=== PATIENT | female | born 1935 | race Caucasian/White ===

== ENCOUNTER 2017-06-11 12:08 | Inpatient (IN) | payer OTHER ==
[~2017-06-11] VITALS: Ht 167.6 cm; Wt 108.4 kg
[~2017-06-11 12:08] MED LIST: AMBIEN 5 MG TABL5 M1 PO; AMITRIPTYLINE H10 M1 PO; AMLODIPINE BESY10 MG PO; ATENOLOL-CHLOR1 EACH PO; BENADRYL25 MG PO; CARVEDILOL12.5 MG PO; CATAPRES0.2 M1 PO; CIPRO500 MG PO; CIPROFLOXACIN250 M2 PO; CLONIDINE0.1 PO; COLACE100 MG PO; COLCHICINE0.6 MG PO; COREG25 MG PO; DILAUDID 2 MG TA2 MG PO; DOCUSATE SODIU100 MG PO; DULCOLAX5 MG PO; DUONEB 2.5-0.5 M3 ML INH; EPOGEN10000 UNIT HEMODIALYS; EPOGEN20000 UNI2 SUBQ; EYE IRRIGATING118 ML OPHTHALMIC; FAMVIR500 MG PO; FENTANYL PA50 MCG/HR TRANSDERM; GABAPENTIN 100100 MG PO; GENTAMICIN100 MG/10 IV; HEPARIN 1,100 UNIT/1 HEMODIALYS; HYDRALAZINE 2525 M1 GT; HYDRALAZINE 2525 M1 PO; HYDRALAZINE 2525 MG PO; HYDROCODON-ACE1 EAC7 PO; HYDROCODON-ACE1 EAC8 PO; HYDROCODONE-AP1 EAC6 PO; HYDROCODONE-APA1 TA1 PO; HYTRIN 5 M5 MG/1 CAP PO; IRON325 PO; KEFLEX500 MG PO; KLOR-CON M1010 MEQ PO; LASIX 40 MG TAB40 M2 PO; LEVAQUIN 250 M250 MG PO; LEVAQUIN 500 M500 M2 PO; LIDODERM 5%1 PATC1 TOP; LIDODERM 5%1 PATC1 TRANSDERM; LISINOPRIL10 MG PO; LORTAB 5-500 T1 EAC1 PO; LYRICA 75 MG CA75 MG PO; MAG-AL PLUS SUS30 ML PO; MELATONIN3 MG PO; MELOXICAM7.5 MG PO; MILK OF MA2400 MG/10 PO; MIRALAX17 GM PO; MIRALAX255 GM PO; MOVANA300 MG; NEURONTIN 300300 M1 PO; NEURONTIN300 MG PO; NORCO 10-325 T1 EACH PO; NORCO 5-325 TA1 EACH PO; NORTRIPTYLINE H10 M1 PO; NORTRIPTYLINE H10 M2 PO; NORVASC10 MG PO; NYSTATIN15 GM TOP; ONDANSETRON HCL4 M2 PO; OXYCODONE HCL 55 MG PO; PEPCID20 MG PO; PHENERGAN 25 MG25 M1 PO; PHOSLO667 M1 PO; PREDNISONE 20 M20 MG PO; PROTONIX40 M2 PO; RANITIDINE HCL300 M1 PO; RANITIDINE HCL300 MG PO; SENNA PO; SIMETHICONE1 ML MC; TRAMADOL 50 MG50 MG PO; TRANSDERM-SCO1 PATC1 TRANSDERM; TRIAMTERENE-HC1 EAC2 PO; TRIPLE ANTIBIOT28 G2 TP; TYLENOL325 MG PO; VANCOMYCIN HCL1 GM IV; VANCOMYCIN500 MG/VIA IV; VITAMIN B-12250 MCG; VITAMIN D 5050000 I1 PO; VITAMIN D3400 UNIT PO; XANAX 0.25 MG0.25 MG PO; XANAX 0.5 MG0.5 MG PO; ZANTAC 150MG T150 M1
[2017-06-11 12:31] VITALS: BP 141/61
[2017-06-11 12:51] LABS: ABSOLUTE EOSINOPHILS 0.1 thou/uL (0.0-0.7); ABSOLUTE LYMPHOCYTES 0.6 thou/uL (0.8-5.3); ABSOLUTE MONOCYTES 0.3 thou/uL (0.0-1.2); ABSOLUTE NEUTROPHILS 3.7 thou/uL (1.6-8.1); EOSINOPHILS 3.1 %; HEMATOCRIT 31.4 % (37.0-47.0); HEMOGLOBIN 10.5 gm/dL (12.0-15.0); LYMPHOCYTES 12.8 %; MCH 33.1 pg (26.0-34.0); MCHC 33.4 g/dL (28.0-37.0); MONOCYTES 6.5 %; NUCLEATED RBCS 0 /100WBC; PLATELET COUNT* 115 thou/uL (150-400); POLYS 76.6 %; RBC 3.17 mil/uL (4.20-5.00); RDW-CV 17.1 % (10.5-14.5); WBC 4.8 thou/uL (4.0-11.0)
[2017-06-11 12:58] LABS: ANION GAP 10 mmol/L (7-16); BUN 45 mg/dL (7-18); CALCIUM 7.4 mg/dL (8.5-10.1); CHLORIDE 103 mmol/L (98-107); CO2 26 mmol/L (21-32); CREATININE 5.3 mg/dL (0.6-1.3); GLUCOSE 141 mg/dL (70-99); POTASSIUM 4.6 mmol/L (3.5-5.1); SODIUM 139 mmol/L (136-145)
[2017-06-11 13:06] LABS: ALBUMIN 2.7 g/dL (3.4-5.0); ALKALINE PHOSPHATASE 109 U/L (46-116); LIPASE 46 U/L (73-393); SGOT 13 U/L (15-37); SGPT 14 U/L (30-65); TOTAL BILIRUBIN 0.4 mg/dL (<0.1-1.0); TOTAL PROTEIN 6.3 g/dL (6.4-8.2); TROPONIN-I LEVEL <0.06 ng/mL (<0.06)
[2017-06-11 16:30] VITALS: BP 136/66
[2017-06-11 16:55] VITALS: BP 186/90
[2017-06-11 21:05] VITALS: BP 161/71
[2017-06-11 23:00] VITALS: BP 124/70
[2017-06-12 04:00] VITALS: BP 152/72
[2017-06-12 05:00] LABS: ABSOLUTE EOSINOPHILS 0.2 thou/uL (0.0-0.7); ABSOLUTE LYMPHOCYTES 0.7 thou/uL (0.8-5.3); ABSOLUTE MONOCYTES 0.4 thou/uL (0.0-1.2); ABSOLUTE NEUTROPHILS 3.6 thou/uL (1.6-8.1); BASOPHILS 0.9 %; EOSINOPHILS 3.5 %; HEMATOCRIT 31.7 % (37.0-47.0); HEMOGLOBIN 10.6 gm/dL (12.0-15.0); LYMPHOCYTES 14.9 %; MCH 33.4 pg (26.0-34.0); MCHC 33.5 g/dL (28.0-37.0); MCV 99.9 fL (80.0-100.0); MONOCYTES 8.2 %; MPV 8.5 fl. (7.2-11.1); NUCLEATED RBCS 0 /100WBC; PLATELET COUNT* 113 thou/uL (150-400); POLYS 72.5 %; RBC 3.17 mil/uL (4.20-5.00); RDW-CV 17.1 % (10.5-14.5)
[2017-06-12 05:13] LABS: CALCIUM 7.7 mg/dL (8.5-10.1); CREATININE 5.3 mg/dL (0.6-1.3); POTASSIUM 5.1 mmol/L (3.5-5.1)
[2017-06-12 09:00] VITALS: BP 162/69
--- NOTE | 2017-06-12 09:34 | CON ---
[address] [address] CONSULTATION Name: MARISEL SHERMAN Room: [address] IN .R.#: [id number] Admission: 06/11/17 Attend Phys: Vinh Leslie MD Discharge: Date of : 34 Report #: [id number] THIS REPORT FOR: //name// CC: Vinh Disla Nida DATE OF SERVICE: 06/11/2017 NEPHROLOGY CONSULTATION CONSULTING PHYSICIAN: Vinh Leslie MD REASON FOR CONSULTATION: End-stage kidney disease. HISTORY OF PRESENT ILLNESS: The patient is an 81-year-old female with history of end-stage kidney disease, on hemodialysis Sunday, Sunday and Sunday was at her dialysis center this morning, but was told to come here as they noticed some bruising and some confusion reportedly. She comes in to the Emergency Department and is going to be admitted for weakness. She is awake and alert, does not seem confused. Does not have any shortness of breath. No nausea or vomiting. Really, no other complaints at this time. REVIEW OF SYSTEMS: Constitutional, psych, heme, eyes, ENT, respiratory, cardiac, GI, , endocrine, all negative except as documented above. PAST MEDICAL HISTORY: History of end-stage kidney disease, on dialysis Sunday, Sunday and Sunday; hypertension, reflux, history of partial gastrectomy and history of CHF. SOCIAL HISTORY: No tobacco. FAMILY HISTORY: Not pertinent in this 81-year-old female. CURRENT MEDICATIONS: Reviewed. PHYSICAL EXAMINATION: VITAL SIGNS: Blood pressure 141/61, pulse 78, respirations 16, temperature 36.4. GENERAL: In no acute distress. EYES: Extraocular movements intact. EARS: Externally normal. CARDIOVASCULAR: Regular rate. LUNGS: No crackles. ABDOMEN: Soft. LYMPHATICS: Mild swelling in the lower extremities. PSYCHIATRIC: Awake, [place] [address] CONSULTATION Name: MARISEL SHERMAN Room: [address]#: [id number] Admission: 06/11/17 Attend Phys: Vinh Leslie MD Discharge: Date of : 34 Report #: [id number] LABORATORY DATA: White cell count 4.8, hemoglobin 10.5, platelets 115. Sodium 139, potassium 4.6, chloride 103, bicarbonate 26, BUN 45, creatinine 5.3, glucose 141, calcium 7.4. ASSESSMENT AND PLAN: 1. End-stage kidney disease, hemodialysis Sunday, Sunday and Sunday, hemodynamically and from electrolyte standpoint, she is currently stable. She missed her dialysis today. No urgent indications for dialysis tonight. We will plan to do the dialysis in the morning and then resume her Sunday, Sunday and Sunday schedule. We will follow for dialysis needs. 2. Anemia of chronic disease. Continue outpatient ANA PAULA regimen. Thank you for requesting my opinion in the care and management of this patient. <ELECTRONICALLY SIGNED> By: Yusuf Nathan MD 06/12/17 0934 1553 [id number] Nathan MD /nt
[2017-06-12 15:38] VITALS: BP 157/75
[2017-06-12 19:46] VITALS: BP 162/81
[2017-06-12 23:26] VITALS: BP 118/71
[2017-06-13 03:41] VITALS: BP 147/78
[2017-06-13 07:39] VITALS: BP 137/58
--- NOTE | 2017-06-13 09:11 | EKG ---
[place] [address] ELECTROCARDIOGRAM REPORT Name: WHITMARISEL A Room: [address] ADM IN [facility].#: [id number] Admission: 06/11/17 Attend Phys: Vinh Leslie MD Discharge: Date of : 34 Report #: [id number] THIS REPORT FOR: //name// [facility] Test Date: 2017-06-12 Test Time: 08:55:58 Pat Name: MARISEL SHERMAN Department: Room: [address] Gender: F Groundsman: KF : 1935 Requested By: Vinh Leslie Order Number: [id number] Justus MD: Ritchie Benton Measurements Intervals [place] Rate: 77 P: 36 MT: 193 QRS: 38 QRSD: 81 T: 66 QT: 383 QTc: 434 Interpretive Statements Sinus rhythm Atrial premature complex Compared to ECG 04/24/2016 17:34:38 No significant changes Electronically Signed On 06-13-2017 9:11:36 CDT by Ritchie Benton [email or web address] <ELECTRONICALLY SIGNED> By: Ritchie Benton MD, [facility] 06/13/17910 4 4 Ritchie Benton MD, [facility] /EPI
[2017-06-13] MEDS ORDERED: B12INJ IM (13:12)
[2017-06-13] MEDS ORDERED: FOLIC ACID1 MG PO (13:15)
[2017-06-13] MEDS ORDERED: LIDODERM1 EACH TRANSDERM (13:30)
[2017-06-13] MEDS ORDERED: ERGOCALCIF50000 UNIT PO (13:32)
[2017-06-13 13:36] VITALS: BP 137/58
--- NOTE | 2017-06-18 12:50 | CON ---
[address] [address] CONSULTATION Name: MARISEL SHERMAN Room: [address] IN .R.#: [id number] Admission: 06/11/17 Attend Phys: Vinh Leslie MD Discharge: 06/13/17 Date of : 34 Report #: [id number] THIS REPORT FOR: //name// CC: Vinh Alva MD INDICATION: Chest pain. HISTORY OF PRESENT ILLNESS: The patient is an 81-year-old white female who was admitted to the hospital after falling at home. She apparently was assisted back to an upright position by EMS and at that time refused hospital admission. She was later brought to the hospital by her family for confusion. Since being in the hospital, she has complained of chest discomfort, right-sided in location and reproducible. She reports having chest pain for the last 4 years since and dialysis shunt was placed. She states this is constant and ongoing. It is worse with deep inspiration and palpitation. She had some relief by bracing her chest. She denies any associated diaphoresis with the chest discomfort. There is no nausea. She is without other cardiac complaint at this time. Past cardiac history includes an echocardiogram obtained in 2015, which showed an EF of 55%-60% and [id number] mitral insufficiency. She has mild LVH. Stress testing at that time showed normal EF with no evidence of ischemia or infarct. PAST MEDICAL HISTORY: 1. Hypertension. 2. Hypertensive heart disease. 3. Chronic diastolic heart failure. 4. End-stage renal disease, on dialysis. 5. Mild pulmonary hypertension. 6. GERD. 7. Pancreatitis and previous rib fractures. PAST SURGICAL HISTORY: 1. Cholecystectomy. 2. Hysterectomy. 3. Knee surgery. 4. Previous knee arthroscopy. 5. Partial gastrectomy. 6. Hemorrhoidectomy. 7. Tonsillectomy. HOME MEDICATIONS: Gabapentin 100 mg p.o. t.i.d.; Lidoderm patch daily; oxycodone immediate release 5 mg q. 4 hours p.r.n.; Keflex 500 mg b.i.d.; triple antibiotic ointment topically b.i.d.; Zofran 4 mg p.o. as directed; Zantac 300 mg at bedtime p.r.n.; vitamin D 400 units daily; vitamin D 50,000 units weekly; [place] [address] CONSULTATION Name: MARISEL SHERMAN Room: [address]#: [id number] Admission: 06/11/17 Attend Phys: Vinh Leslie MD Discharge: 06/13/17 Date of : 34 Report #: [id number] Epogen 50,000 mg as directed; nortriptyline 20 mg at bedtime; alprazolam 0.5 mg t.i.d.; MiraLax 17 grams p.r.n.; Elavil 10 mg at bedtime; Colace 100 mg daily and colchicine 0.6 mg 1/2 tablet daily. ALLERGIES: TAPE, ASPIRIN, CODEINE, FLU VACCINE and PENICILLIN. REVIEW OF SYSTEMS: Positive for generalized weakness, 7-pound weight gain, constant chest discomfort, constant shortness of breath, depression, anxiety, psoriasis, reading glasses and decreased hearing. Otherwise, 14-point review of systems was unremarkable. PHYSICAL EXAMINATION: VITAL SIGNS: Stable. Blood pressure 157/75 and pulse 81 and regular. GENERAL: This is a pleasant lady who is in no distress. Mood and affect appropriate. HEENT: Extraocular muscles intact. NECK: Shows no jugular venous distention. CHEST: Reveals clear lung maher. I do not appreciate wheezes or rales. CARDIAC: Reveals a regular rhythm with normal S1 and S2. I do not appreciate gallop or murmur. ABDOMEN: Reveals normal bowel sounds. EXTREMITIES: Shows no edema. Peripheral pulses palpable. IMPRESSION AND RECOMMENDATIONS: 1. Atypical noncardiac chest pain that sounds musculoskeletal in nature. Continue to treat with pain relief medications. No further cardiac workup at this time. Troponins are unremarkable. 2. Chronic diastolic heart failure, appears well compensated at present. We would follow clinically. 3. End-stage renal disease, on dialysis. 4. Hypertension, presently well controlled on current regimen. 5. Hypertensive heart disease, presently stable. At this point in time, the patient appears stable from a cardiac standpoint. We would follow clinically. <ELECTRONICALLY SIGNED> By: Ritchie Benton MD, FACC 06/18/17 1250 1603 2053Micelroy Benton MD, FACC /nt
== END 2017-06-13 14:20 | DRG 91 ==
LOC: M.ERS 12:08 → M.TBA-ER 14:28 → M.2W 14:28
PROVIDERS: Physician Assistant; ADMIT Internal Medicine
PROC: 5A1D70Z Performance of Urinary Filtration, Intermittent, Less than 6 Hours Per Day (ICD-10-PCS; principal; 2017-06-12)
DX: G92 Toxic encephalopathy (principal); N18.6 End stage renal disease; I13.2 Hypertensive heart and chronic kidney disease with heart failure and with stage 5 chronic kidney disease, or end stage renal disease; I50.32 Chronic diastolic (congestive) heart failure; K21.9 Gastro-esophageal reflux disease without esophagitis; R07.89 Other chest pain; G89.29 Other chronic pain; E87.5 Hyperkalemia; G31.84 Mild cognitive impairment of uncertain or unknown etiology; D63.8 Anemia in other chronic diseases classified elsewhere; Z99.2 Dependence on renal dialysis; Z98.84 Bariatric surgery status; Z90.49 Acquired absence of other specified parts of digestive tract; Z90.710 Acquired absence of both cervix and uterus; Z88.6 Allergy status to analgesic agent; Z88.5 Allergy status to narcotic agent; Z88.0 Allergy status to penicillin; Z88.7 Allergy status to serum and vaccine; Z91.048 Other nonmedicinal substance allergy status

== ENCOUNTER 2017-07-02 23:07 | Inpatient (IN) | payer OTHER ==
[~2017-07-02] VITALS: Ht 167.6 cm; Wt 104.1 kg
[~2017-07-02 23:07] MED LIST changes: +B12INJ IM; +ERGOCALCIF50000 UNIT PO; +FOLIC ACID1 MG PO; +LIDODERM1 EACH TRANSDERM
[2017-07-02 23:10] VITALS: BP 183/84
[2017-07-02] MEDS ORDERED: XANAX 0.5 MG0.5 MG PO (23:23)
[2017-07-02] MEDS ORDERED: GABAPENTIN600 M1 PO (23:24)
[2017-07-02 23:56] LABS: ABSOLUTE BASOPHILS 0.1 thou/uL (0.0-0.2); ABSOLUTE EOSINOPHILS 0.1 thou/uL (0.0-0.7); ABSOLUTE LYMPHOCYTES 0.7 thou/uL (0.8-5.3); ABSOLUTE MONOCYTES 0.3 thou/uL (0.0-1.2); ABSOLUTE NEUTROPHILS 3.6 thou/uL (1.6-8.1); BASOPHILS 1.1 %; EOSINOPHILS 3.1 %; HEMATOCRIT 33.8 % (37.0-47.0); HEMOGLOBIN 11.4 gm/dL (12.0-15.0); LYMPHOCYTES 13.8 %; MCHC 33.7 g/dL (28.0-37.0); MPV 9.3 fl. (7.2-11.1); NUCLEATED RBCS 0 /100WBC; PLATELET COUNT* 94 thou/uL (150-400); RBC 3.55 mil/uL (4.20-5.00); RDW-CV 16.5 % (10.5-14.5); WBC 4.8 thou/uL (4.0-11.0)
[2017-07-03 00:07] LABS: CALCIUM 8.2 mg/dL (8.5-10.1); CREATININE 3.8 mg/dL (0.6-1.3); POTASSIUM 4.5 mmol/L (3.5-5.1)
[2017-07-03 00:11] LABS: ALBUMIN 3.2 g/dL (3.4-5.0); TOTAL BILIRUBIN 0.5 mg/dL (<0.1-1.0); TOTAL PROTEIN 7.1 g/dL (6.4-8.2)
[2017-07-03 01:18] VITALS: BP 169/74
[2017-07-03 01:30] VITALS: BP 179/91
[2017-07-03 04:20] LABS: HEMATOCRIT 31.8 % (37.0-47.0); HEMOGLOBIN 10.7 gm/dL (12.0-15.0); MCH 32.1 pg (26.0-34.0); MCHC 33.6 g/dL (28.0-37.0); MCV 95.7 fL (80.0-100.0); MPV 9.1 fl. (7.2-11.1); RBC 3.32 mil/uL (4.20-5.00); RDW-CV 16.6 % (10.5-14.5); WBC 5.3 thou/uL (4.0-11.0)
[2017-07-03 04:37] LABS: ALBUMIN 2.9 g/dL (3.4-5.0); POTASSIUM 4.5 mmol/L (3.5-5.1); TOTAL BILIRUBIN 0.5 mg/dL (<0.1-1.0); TOTAL PROTEIN 6.5 g/dL (6.4-8.2)
--- NOTE | 2017-07-03 06:07 | NUR ---
PATIENT HAS REMAINED ALERT AND ORIENTED X 4 THROUGHOUT THE SHIFT AND HAS BEEN RESTING QUIETLY ON HOURLY ROUNDS SINCE ADMISSION ROUTINES WERE COMPLETED AND HOME CPAP APPLIED. RECEIVED A ONE TIME DOSE HYDROCODONE FOR RIGHT WRIST PAIN TO GOOD EFFECT. REFUSED Q2H TURNS. RIGHT ARM ON PILLOW. ADEQUATE CAP REFILL/SENSATION RIGHT FINGERS. PATIENT DID ARRIVE TO UNIT WITH NAIF WRAPPED SPLINT TO RIGHT WRIST AND THIS HAD REMAINED CLEAN AND DRY. NEPHROLOGY AND ORTHO CONSULTATION THIS AM. CONTINUE TO MONITOR.
[2017-07-03 08:06] VITALS: BP 164/62
--- NOTE | 2017-07-03 16:19 | NUR ---
PATIENT REMAINS ALERT AND ORIENTED. PAIN CONTROLLED WITH HYDROCDONE AND OXYIR. PATIENT REFUSING TO GET OUT OF BED TODAY. DIALYSIS TOMORROW. ENCOURAGED TO REPOSITION EVERY 2 HOURS, BUT OFTEN REFUSES DUE TO PAIN. TOLERATING MEALS. NAUSEA MEDICATION X1 TODAY. REFUSED SCD'S, EDUCATION GIVEN. CALL LIGHT WITHIN REACH. WILL CONTINUE TO MONITOR.
--- NOTE | 2017-07-03 16:20 | NUR ---
P.TErnst ORDERS RECEIVED THIS A.M. PT HAS ORTHO CONSULT PENDING. WILL AWAIT RESULTS OF ORTHO CONSULT AND PROCEED WITH P.Remigio WOODS TOMORROW.
[2017-07-03 17:19] VITALS: BP 155/68
[2017-07-03 20:00] VITALS: BP 167/83
[2017-07-04 00:26] VITALS: BP 106/70
--- NOTE | 2017-07-04 06:01 | NUR ---
PATIENT ALERT AND ORIENTED X 4. VITALS STABLE. RA. PAIN CONTROLLED WITH PO MEDICATION. RUE ACEWRAP AND SPLINT IN PLACE. NWB. PAIN CONTROLLED WITH PO MEDICATION. PATIENT HAS DIALYSIS TODAY. HOURLY ROUNDS. BED ALARM IN USE. NURSING WILL CONTINUE TO MONITOR.
[2017-07-04 07:29] VITALS: BP 110/68
--- NOTE | 2017-07-04 11:23 | CON ---
[address] [address] CONSULTATION Name: MARISEL SHERMAN Room: [address] IN ..#: [id number] Admission: 07/03/17 Attend Phys: Danny Barnes Discharge: Date of : 34 Report #: [id number] THIS REPORT FOR: //name// CC: Ernestina Alva DATE OF SERVICE: 07/03/2017 REQUESTING PHYSICIAN: Dr. Tiwari REASON FOR CONSULTATION: Assist in providing dialysis. HISTORY OF PRESENT ILLNESS: The patient is a very pleasant 81-year-old lady, very well known to us. She was just recently discharged from the hospital. She has a history of end-stage renal disease. She had dialysis yesterday. The patient unfortunately tripped over a cord on the floor yesterday after dialysis, fell landing on her right side. She was brought to the Emergency Room and was diagnosed with a fracture of her right radial bone and she has also closed fractures of her ribs. She was evaluated by Dr. Da Silva, Dr. Tiwari, and also Orthopedics is on the case. At this point, the patient is in a cast, no need for surgery. PAST MEDICAL HISTORY: Significant for, 1. End-stage renal disease, on dialysis Sunday, Sunday and Sunday schedule. 2. History of degenerative joint disease. 3. History of pancreatitis. 4. History of urinary tract infection. 5. History of anemia. FAMILY HISTORY: Noncontributory. SOCIAL HISTORY: No tobacco or alcohol abuse. MEDICATIONS: Reviewed. PHYSICAL EXAMINATION: GENERAL: Awake, alert, oriented x 4. VITAL SIGNS: Blood pressure 164/62, heart rate 79, afebrile. HEENT: Pupils are round. NECK: Fatty. LUNGS: Decreased air movements. EXTREMITIES: Her right arm is entirely wrapped in a cast. On the left arm, she has a brachiocephalic fistula, which is patent. ABDOMEN: [place] [address] CONSULTATION Name: MARISEL SHERMAN Room: [address] IN [facility].#: [id number] Admission: 07/03/17 Attend Phys: Danny Barnes Discharge: Date of : 34 Report #: [id number] LABORATORY DATA: Hemoglobin 10.7, white count 5.3. Potassium 4.5, serum sodium 136, BUN 30, creatinine 4.0. ASSESSMENT AND PLAN: This 81-year-old female admitted after a fall and she sustained transverse, mildly impacted, partially comminuted fracture of the distal radius on the right side. I will provide dialysis while she is in the hospital. Next dialysis will be tomorrow. I discussed this case with Dr. Tiwari. Thank you very much for asking my assistance providing dialysis for this patient. <ELECTRONICALLY SIGNED> By: Colten Mullins MD 07/04/17 1123 1026 1245Alexandr Guido Mullins MD /nt
[2017-07-04 14:32] LABS: HEMATOCRIT 32.9 % (37.0-47.0); HEMOGLOBIN 11.3 gm/dL (12.0-15.0); MCH 32.3 pg (26.0-34.0); MCHC 34.2 g/dL (28.0-37.0); MCV 94.4 fL (80.0-100.0); MPV 9.8 fl. (7.2-11.1); NUCLEATED RBCS 0 /100WBC; PLATELET COUNT* 77 thou/uL (150-400); RBC 3.49 mil/uL (4.20-5.00); RDW-CV 16.3 % (10.5-14.5); WBC 4.6 thou/uL (4.0-11.0)
[2017-07-04 14:56] LABS: CALCIUM 8.1 mg/dL (8.5-10.1); POTASSIUM 3.7 mmol/L (3.5-5.1)
[2017-07-04 14:58] LABS: CREATININE 2.1 mg/dL (0.6-1.3)
[2017-07-04 15:18] LABS: ABSOLUTE EOSINOPHILS 0.1 thou/uL (0.0-0.7); ABSOLUTE LYMPHOCYTES 0.5 thou/uL (0.8-5.3); ABSOLUTE MONOCYTES 0.2 thou/uL (0.0-1.2); ABSOLUTE NEUTROPHILS 3.9 thou/uL (1.6-8.1)
[2017-07-04 15:19] LABS: PLATELET ESTIMATE DECREASED
[2017-07-04 15:20] LABS: ANISOCYTOSIS Occasional
[2017-07-04 15:37] VITALS: BP 118/79
--- NOTE | 2017-07-04 16:00 | NUR ---
SPOKE WITH PT. SHE ANSWERED SOME OF THE QUESTIONS. SHE SAID SHE LIVES WITH HER FAMILY IN A HOUSE. THERE ARE 12 OF THEM. 6 ADULTS AND 6 KIDS. SHE AHS A WALKER AND HOVER ROUND WC. SHE GOES TO DIALYSIS AT [facility]. HER DAUGHTER USUALLY TAKES HER TO HER DIALYSIS. SHE RECENTLY JUST WAS RELEASED FROM [facility] ON SUNDAY. SHE SAID TO CALL HER DAUGHTER ABOUT DISCHARGE PLANNING AND SHE WILL DO WHAT SHE WANTS. TAWNYA SPOKE WITH LOIS [id number]. SHE SAID HER MOM IS VERY WEAK IN THE LEGS. SHE BENDS OVER TOO FAR WHEN SHE TRYS TO WALK. SHE DID NOT TRIP ON A CORD, HER MOM STATED. SHE WAS TRYING TO PUT ON HER UNDERWEAR AND DID NOT WAIT FOR LOIS TO COME TO HELP HER AND SHE FELL. SHE FEELS SHE BECAME WEAK AFTER SHE GOT HOME FROM SNF BECAUSE ALL SHE DID WAS SIT IN HER WC EVERY SINCE SHE GOT HOME ON SAT. LOIS WOULD LIKE HER TO GO BACK TO THE [facility], IF SHE HAS ANY DAYS LEFT. LOIS VERY TEARFUL. RAISED VOICE COULD BE HEARD IN THE BACKROUND IF KIDS WERE FIGHTING. SHE SAID SHE IS JUST STRESSED. EXPLAINED THEY BELIEVE IT TAKES A VILLAGE TO RAISE CHILDREN SO THEY BELIEVE IN LIVING WITH EXTENDED FAMILY. SHE ALSO SAID HER MOM SAYS 'I JUST WANT TO GO HOME',MEANING SHE WANTS TO GO TO [facility]. THEN WHEN LOIS BRINGS UP HOSPICE,HER MOM SAYS I DON'T WANT TO . IF THEY PLACE PT.IN A LTC FACILITY THEY WOULD LOSE HER SS CHECK AND RESIDENTIAL AND THEY WOULD NOT BE ABLE TO LIVE. TAWNYA WILL CALL EL IN AM TO DISCUSS. WILL ALSO TALK WITH PT.ABOUT HOSPICE/PALLIATIVE CARE.
--- NOTE | 2017-07-04 16:47 | NUR ---
ASSUMED CARE OF PATIENT AFTER MORNING REPORT. ALERT AND ORIENTED X4. ASSESSMENT COMPLETED AND CHARTED. VSS ON ROOM AIR. PATIENTS PAIN HAS BEEN MANAGED WITH PAIN MEDICATION. NO COMPLAINTS OF NAUSEA OR SOA THIS SHIFT. PATIENT WENT UP FOR DIALYSIS AT APPROXIMATELY 1830 AND RETURNED AROUND 1230. PATIENT WORKED WITH THERAPY WITH SOME RESISTANCE. PATIENT UP TO CHAIR BY [facility] AND ASKED TO GO BACK TO BED LESS THAN AN HOUR LATER, WHEN ASKED TO STAY UP UNTIL DINNER ARRIVED, PATIENT SCREAMED AT STAFF THAT IF SHE WAS NOT HELPED BACK INTO BED SHE WOULD DO IT HERSELF. STAFF EDUCATED PATIENT ON SAFETY PROTOCOL TO PREVENT FALLS AND THAT PATIENT WAS NOT SAFE TO MOVE HERSELF BACK TO BED. STAFF HELPED MOVE PATIENT BACK INTO BED AND EXPLAINED TO PATIENT THAT IT IS FOR HER BENEFIT TO STAY UP IN THE CHAIR IN ORDER TO REGAIN STRENGTH AND PREVENT PNEUMONIA, PATIENT STATED THAT SHE DID NOT CARE AND SHE WANTED TO STAY IN BED. HOURLY ROUNDS MAINTAINED, CALL LIGHT IS WITHIN REACH AND NURSING WILL CONTINUE TO MMONITOR COSELY.
[2017-07-04 20:15] VITALS: BP 154/77
[2017-07-05 04:07] LABS: GLYCOHEMOGLOBIN (HGB A1C) 4.5 % (4.8-5.6)
--- NOTE | 2017-07-05 05:01 | NUR ---
PATIENT ALERT AND ORIENTED X 4. VITALS STABLE. RA. PAIN CONTROLLED WITH PO MEDICATION. RUE SLING IN PLACE. DRESSING C/D/I. INCREASED PAIN WITH MOVEMENT. MILK OF MAG GIVEN AT HS. NO BOWEL MOVEMENT DURING MY SHIFT. SLEPT COMFORTABLY THROUGH THE NIGHT. HOURLY ROUNDS. BED ALARM IN USEE. NURSING WILL CONTINUE TO MONITOR.
[2017-07-05 07:54] VITALS: BP 148/75
--- NOTE | 2017-07-05 09:32 | NUR ---
FAXED REFERRAL TO [facility] AND LEFT HER A VM.
--- NOTE | 2017-07-05 15:45 | NUR ---
KEITH CALLED FROM THE [facility]. SHE HAD OBTAINED INS.AUTH FOR A SKILLED BED. TAWNYA CALLED AND HE IS OK WITH DISCHARGE AND ORDERS OBTAINED. CM CALLED DAUGHTER,LOIS,TO INFORM. SHE WAS AGREEABLE. SPOKE WITH PT. SHE WAS AGREEABLE BUT TEARFUL. SHE JUST IS MAD AT HERSELF FOR FALLING AT HOME AND SHE SAID SHE WAS DOING SO GOOD. [facility] WILL PICK PT.UP AT 5PM. PT.INFORMED. CHART IS COPIED TO GO WITH PT. BELÉN CARLISLE WILL CALL REPORT.
[2017-07-05 15:59] VITALS: BP 148/75
[2017-07-05] MEDS ORDERED: HYDROCODON-ACE1 EAC7 PO (16:10)
--- NOTE | 2017-07-05 17:19 | NUR ---
ASSUMED CARE OF PATIENT AFTER MORNING REPORT. ALERT AND ORIENTED X4. ASSESSMENT COMPLETED AND CHARTED. VSS ON ROOM AIR. PATIENT HAD NO COMPLAINTS OF NAUSEA OR SOA. PAIN HAS BEEN MANAGED WITH PAIN MEDICATION. PATIENT WORKED WITH PT AND OT TODAY AND SHOWED SOME PROGRESSION, STILL NEEDS MORE WORK TO REACH GOALS. PATIENT DISCHARGED TO SKILLED FACILITY AT 1710. ALL PERSONAL BELONGINGS AND DISCHARGE PAPERWORK SENT WITH PATIENT UPON DISCHARGE.
--- NOTE | 2017-11-04 09:13 | CON ---
[address] [address] CONSULTATION Name: MARISEL SHERMAN Room: [address] IN .R.#: [id number] Admission: 07/03/17 Attend Phys: Danny Barnes Discharge: 07/05/17 Date of : 34 Report #: [id number] THIS REPORT FOR: //name// CC: Ernestina Alva DICTATED BY: Ap Monroy DO DATE OF SERVICE: 07/03/2017 REASON FOR CONSULTATION: Right wrist fracture, status post fall. HISTORY OF PRESENT ILLNESS: The patient is a pleasant 81-year-old female who has had multiple falls over the past few months. She states that yesterday she was at her home where she lives with approximately 12 other family members who help provide her care. She states that she tripped on a cord, hit a dresser with her right arm as she fell down onto her right side, which is her dominant hand. She was found lying with her right arm beneath her, had multiple skin tears of her right arm and wrist, was noted to have some swelling, and was brought to the Emergency Department where x-rays were taken. She was found to have a distal radius fracture as well as a nondisplaced proximal humerus fracture for which our services were consulted. She currently complains of some vague aches and pains from the fall, but no other focal musculoskeletal pains other than the above-mentioned illness. She was placed in a thumb spica splint in the Emergency Department, which she is currently in. PAST MEDICAL HISTORY: Hypertension, congestive heart failure, dialysis, respiratory failure, GERD. PAST SURGICAL HISTORY: Right total knee replacement, partial gastrectomy, removal of hemorrhoids, tonsillectomy, previous arthroscopy, left arm fistula. MEDICATIONS: See APR. ALLERGIES: ASPIRIN, CODEINE, INFLUENZA VIRUS VACCINE, PENICILLINS, PNEUMOCOCCAL VACCINE, TAPE. FAMILY HISTORY: Noncontributory. SOCIAL HISTORY: Denies any alcohol, tobacco or illicit drug use. REVIEW OF SYSTEMS: Twelve-point review of systems is negative except for the above-mentioned in HPI. PHYSICAL EXAMINATION: GENERAL: Alert, oriented, [place] [address] CONSULTATION Name: MARISEL SHERMAN Michelle Room: [address]#: [id number] Admission: 07/03/17 Attend Phys: Danny Barnes Discharge: 07/05/17 Date of : 34 Report #: [id number] HEENT: Head normocephalic, atraumatic. Eyes: Extraocular motion intact. Ears are grossly normal. Mouth, mucosa moist. NECK: Supple. CARDIOVASCULAR: Cap refill brisk. ABDOMEN: Soft. MUSCULOSKELETAL: Examination of the right upper extremity demonstrates some mild tenderness over the proximal humerus. There is some swelling and tenderness about the right distal radius. She is able to flex and extend her thumb as well as all 4 of her fingers. Sensation is intact distally. Her cap refill is brisk. Radial pulse +2/4. There are skin tears throughout her right arm that were treated in the Emergency Department. She has no pain with elbow range of motion, mild discomfort with gentle shoulder range of motion. A global musculoskeletal examination reveals no obvious abnormalities. No pain with gentle range of motion of the lower extremities or left upper extremity. IMAGING: X-rays of the right shoulder demonstrate what appears to be an age indeterminate nondisplaced surgical neck fracture involving the proximal humerus with diffuse osteopenia present at the metaphyseal region of the bone. X-rays of the right distal radius demonstrate an extraarticular minimally displaced distal radius fracture with some slight dorsal angulation. There is no gross displacement. No other severe osteoarthritis of the first CMC joint. Overall acceptable alignment of the wrist. IMPRESSION: 1. Right closed extraarticular distal radius fracture. 2. Right minimally displaced proximal humerus fracture. 3. Osteoporosis. PLAN: At this time, the splint on her wrist was removed. She was placed in a well-padded sugar-tong splint with a gentle 3-point mold to try and prevent any dorsal angulation. A sling was ordered for the right upper extremity due to the proximal humerus fracture as well as the overall weight of the sugar tong splint. It is okay to work on finger range of motion. She will be nonweightbearing to the right upper extremity. I would recommend PT and OT to evaluate and treat her for gait training as well as to help her with activities of daily living. She will follow up in approximately one week, at which time we will repeat x-rays. We discussed with her that should there be any increase in displacement that her risk could meet operative indications; however, due to the overall good position of it currently and her comorbidities, we would recommend an attempted nonoperative management at this time. <ELECTRONICALLY SIGNED> By: Ritchie Arvizu DO 11/04/17 0913 0847 1344Micelroy Arvizu DO /nt
== END 2017-07-05 17:10 | DRG 542 ==
LOC: M.ERS 23:07 → M.TBA-ER 07-03 00:26 → M.ORTHSURG 07-03 00:26
PROVIDERS: Emergency Medicine; Internal Medicine; ADMIT Internal Medicine
PROC: 2W3GX1Z Immobilization of Right Thumb using Splint (ICD-10-PCS; principal; 2017-07-03)
PROC: 5A1D70Z Performance of Urinary Filtration, Intermittent, Less than 6 Hours Per Day (ICD-10-PCS; 2017-07-04)
DX: M80.021A Age-related osteoporosis with current pathological fracture, right humerus, initial encounter for fracture (principal); N18.6 End stage renal disease; G93.41 Metabolic encephalopathy; S52.551A Other extraarticular fracture of lower end of right radius, initial encounter for closed fracture; I13.2 Hypertensive heart and chronic kidney disease with heart failure and with stage 5 chronic kidney disease, or end stage renal disease; K21.9 Gastro-esophageal reflux disease without esophagitis; Z96.651 Presence of right artificial knee joint; N18.9 Chronic kidney disease, unspecified; M19.90 Unspecified osteoarthritis, unspecified site; D63.8 Anemia in other chronic diseases classified elsewhere; I50.9 Heart failure, unspecified; M81.0 Age-related osteoporosis without current pathological fracture; Z90.3 Acquired absence of stomach [part of]; Z90.49 Acquired absence of other specified parts of digestive tract; Z87.440 Personal history of urinary (tract) infections; Z90.710 Acquired absence of both cervix and uterus; Z88.6 Allergy status to analgesic agent; Z88.7 Allergy status to serum and vaccine; Z88.0 Allergy status to penicillin; W01.0XXA Fall on same level from slipping, tripping and stumbling without subsequent striking against object, initial encounter; Y93.89 Activity, other specified; Y92.89 Other specified places as the place of occurrence of the external cause; Y99.8 Other external cause status

== ENCOUNTER 2018-03-01 10:59 | Inpatient (IN) | payer OTHER ==
[~2018-03-01] VITALS: Ht 167.6 cm; Wt 103.9 kg
[~2018-03-01 10:59] MED LIST changes: +GABAPENTIN600 M1 PO
[2018-03-01 11:05] VITALS: BP 180/75
[2018-03-01 13:00] LABS: ABSOLUTE EOSINOPHILS 0.2 thou/uL (0.0-0.7); ABSOLUTE LYMPHOCYTES 0.6 thou/uL (0.8-5.3); ABSOLUTE MONOCYTES 0.3 thou/uL (0.0-1.2); ABSOLUTE NEUTROPHILS 2.6 thou/uL (1.6-8.1); BASOPHILS 1.2 %; EOSINOPHILS 4.2 %; HEMATOCRIT 32.2 % (37.0-47.0); LYMPHOCYTES 15.6 %; MCH 33.8 pg (26.0-34.0); MCHC 34.1 g/dL (28.0-37.0); MCV 99.3 fL (80.0-100.0); MONOCYTES 7.5 %; MPV 8.6 fl. (7.2-11.1); NUCLEATED RBCS 0 /100WBC; PLATELET COUNT* 102 thou/uL (150-400); POLYS 71.5 %; RBC 3.24 mil/uL (4.20-5.00); RDW-CV 16.1 % (10.5-14.5); WBC 3.7 thou/uL (4.0-11.0)
[2018-03-01 13:15] LABS: APTT 24.3 Seconds (25.0-31.3); PROTIME 10.5 Seconds (9.20-11.50)
[2018-03-01 13:34] LABS: ANION GAP 8 mmol/L (7-16); BUN 63 mg/dL (7-18); CALCIUM 7.7 mg/dL (8.5-10.1); CHLORIDE 101 mmol/L (98-107); CO2 28 mmol/L (21-32); GLUCOSE 96 mg/dL (70-99); POTASSIUM 5.1 mmol/L (3.5-5.1); SODIUM 137 mmol/L (136-145)
[2018-03-01 13:52] LABS: ALBUMIN 2.7 g/dL (3.4-5.0); ALKALINE PHOSPHATASE 93 U/L (46-116); NT-PRO BRAIN NAT PEPTIDE 7302 pg/mL (<300); SGOT 12 U/L (15-37); SGPT 9 U/L (30-65); TOTAL BILIRUBIN 0.4 mg/dL (<0.1-1.0); TOTAL PROTEIN 6.2 g/dL (6.4-8.2); TROPONIN-I LEVEL <0.06 ng/mL (<0.06)
--- NOTE | 2018-03-01 14:01 | EKG ---
[place] [address] ELECTROCARDIOGRAM REPORT Name: MARISEL SHERMAN Room: [address] [place] [address] ADM IN [facility]#: [id number] Admission: 03/01/18 Attend Phys: Jgiar Estevez MD Discharge: Date of : 34 Report #: [id number] THIS REPORT FOR: //name// [facility] ED Test Date: 2018-03-01 Test Time: 11:09:09 Pat Name: MARISEL SHERMAN Department: Room: [facility] Gender: F Errand Runner: Mj DAVIS : 1935 Requested By: Tito Shaffer Order Number: [id number] MD: Chau Montelongo Measurements Intervals [place] Rate: 78 P: TX: QRS: 24 QRSD: 117 T: 76 QT: 397 QTc: 453 Interpretive Statements Atrial fibrillation Nonspecific intraventricular conduction delay Compared to ECG 06/12/2017 08:55:58 Sinus rhythm no longer present Electronically Signed On 03-01-2018 14:01:00 WELDING MACHINE OPERATOR HELPER ARC by Chau Montelongo [email or web address] <ELECTRONICALLY SIGNED> By: Chau Montelongo MD, FAC 03/01/18 1401 1109 1109 Chau Montelongo MD, [facility] /EPI
[2018-03-01 15:24] VITALS: BP 153/66
--- NOTE | 2018-03-01 15:45 | 2DMMODE ---
[place] [address] 2 D/M-MODE ECHOCARDIOGRAM Name: MARISEL SHERMAN Room: [address] IN [facility]#: [id number] Admission: 03/01/18 Attend Phys: Jigar Estevez, Discharge: Date of : 33 Date of Service: 03/01/18 1545 Report #: [id number] THIS REPORT FOR: //name// APPROVED REPORT Study performed: 03/01/2018 14:47:41 EXAM: Comprehensive 2D, Doppler, and color-flow Echocardiogram Patient Location: In-Patient Room #: 230 Status: routine BSA: 2.13 HR: 76 bpm BP: 160/67 mmHg Rhythm: NSR Other Information Study Quality: Good Indications Atrial Fibrillation 2D Dimensions IVSd: 11.40 (7-11mm) LVOT Diam: 21.69 (18-24mm) LVDd: 36.44 mm PWd: 12.83 (7-11mm) Ascending Ao: 33.16 (22-36mm) LVDs: 19.13 (25-40mm) Aortic Root: 31.49 mm Volumes Left Atrial Volume (Systole) LA ESV Index: 20.00 mL/m2 Aortic Valve AoV Peak Wu.: 1.35 m/s AO Peak Gr.: 7.27 mmHg LVOT Max P.62 mmHg AO Mean Gr.: 3.55 mmHg LVOT Mean P.48 mmHg LVOT Max V: 0.81 m/s AO V2 VTI: 29.94 cm LVOT Mean V: 0.57 m/s REYNA (VTI): 2.44 cm2 LVOT V1 VTI: 19.82 cm Mitral Valve E/A Ratio: 0.92 MV Decel. Time: 211.34 ms MV E Max Wu.: 0.65 m/s MV PHT: 61.29 [place] [address] 2 D/M-MODE ECHOCARDIOGRAM Name: MARISEL SHERMAN Room: [address] IN [facility]#: [id number] Admission: 03/01/18 Attend Phys: Jigar Estevez, Discharge: Date of : 34 Date of Service: 03/01/18 1545 Report #: [id number] MVA (PHT): 3.59 cm2 TDI E/Lateral E': 7.22 E/Medial E': 10.83 Medial E' Wu.: 0.06 m/s Lateral E' Wu.: 0.09 m/s Pulmonary Valve PV Peak Wu.: 0.78 m/s PV Peak Gr.: 2.45 mmHg Tricuspid Valve RAP Estimate: 5.00 mmHg TR Peak Gr.: 68.00 mmHg RVSP: 73.00 mmHg PA Pressure: 73.00 mmHg Left Ventricle The left ventricle is normal size. There is normal LV segmental wall motion. There is normal left ventricular wall thickness. Left ventricular systolic function is normal. The left ventricular ejection fraction is within the normal range. LVEF is 60-65%. Transmitral Doppler flow pattern suggests impaired LV relaxation. Right Ventricle Right ventricle is mild to moderately dilated. The right ventricular systolic function is normal. Atria The left atrium size is normal. The right atrium size is normal. Aortic Valve The aortic valve is normal in structure. No aortic regurgitation is present. There is no aortic valvular stenosis. Mitral Valve The mitral valve is normal in structure. Mild mitral regurgitation. No evidence of mitral valve stenosis. Tricuspid Valve The tricuspid valve is normal in structure. Mild to moderate tricuspid regurgitation. [place] [address] 2 D/M-MODE ECHOCARDIOGRAM Name: MARISEL SHERMAN Room: [address] IN [facility]#: [id number] Admission: 03/01/18 Attend Phys: Jigar Estevez, Discharge: Date of : 34 Date of Service: 03/01/18 1545 Report #: [id number] Pulmonic Valve The pulmonary valve is normal in structure. Mild pulmonic regurgitation. Great Vessels The aortic root is normal in size. IVC is not well visualized. Pericardium There is no pericardial effusion. <Conclusion> The left ventricle is normal size. There is normal left ventricular wall thickness. Left ventricular systolic function is normal. The left ventricular ejection fraction is within the normal range. LVEF is 60-65%. Transmitral Doppler flow pattern suggests impaired LV relaxation. Right ventricle is mild to moderately dilated. The right ventricular systolic function is normal. The left atrium size is normal. The aortic valve is normal in structure. The mitral valve is normal in structure. Mild mitral regurgitation. The tricuspid valve is normal in structure. Mild to moderate tricuspid regurgitation. Moderate pulmonary hypertension. There is no pericardial effusion. There is normal LV segmental wall motion. <ELECTRONICALLY SIGNED> By: Benjy Baker MD, FACC 03/01/18 1545 1545 1545 Benjy Baker MD, FACC /INF
[2018-03-01 19:53] VITALS: BP 151/63
[2018-03-01] MEDS ORDERED: CALCIUM ACETAT667 MG PO (23:22)
[2018-03-02] VITALS: BP 131/63
[2018-03-02 04:00] VITALS: BP 114/61
[2018-03-02 08:00] VITALS: BP 112/47
--- NOTE | 2018-03-02 09:03 | EKG ---
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: [facility] : 1935 Requested By: Valente Champion Order Number: [id number] Justus MD: Chau Montelongo Measurements Intervals [place] Rate: 80 P: 49 CT: 193 QRS: 18 QRSD: 94 T: 96 QT: 413 QTc: 477 Interpretive Statements Sinus rhythm Borderline repolarization abnormality Compared to ECG 03/01/2018 11:09:09 Atrial fibrillation no longer present Electronically Signed On 03-02-2018 9:02:58 MANAGER STERILE PROCESSING by Chau Montelongo [email or web address] <ELECTRONICALLY SIGNED> By: Chau Montelongo MD, [facility] [id number] [phone] Chau Montelongo MD, [facility] /EPI
[2018-03-02 10:06] LABS: CREATININE 3.8 mg/dL (0.6-1.3); POTASSIUM 4.5 mmol/L (3.5-5.1)
[2018-03-02 11:30] VITALS: BP 143/58
[2018-03-02 16:29] VITALS: BP 145/49
[2018-03-02 20:10] VITALS: BP 139/55
[2018-03-03] VITALS: BP 103/55
[2018-03-03 04:00] VITALS: BP 132/57
[2018-03-03 05:02] LABS: HEMATOCRIT 30.5 % (37.0-47.0); HEMOGLOBIN 10.4 gm/dL (12.0-15.0); MCH 33.9 pg (26.0-34.0); MCHC 34.2 g/dL (28.0-37.0); MCV 99.2 fL (80.0-100.0); MPV 8.7 fl. (7.2-11.1); RBC 3.07 mil/uL (4.20-5.00); RDW-CV 16.4 % (10.5-14.5); WBC 2.8 thou/uL (4.0-11.0)
[2018-03-03 05:20] LABS: CALCIUM 7.6 mg/dL (8.5-10.1); MAGNESIUM 2.1 mg/dL (1.8-2.4); POTASSIUM 4.1 mmol/L (3.5-5.1)
[2018-03-03 05:28] LABS: CREATININE 4.8 mg/dL (0.6-1.3)
[2018-03-03 08:00] VITALS: BP 142/59
--- NOTE | 2018-03-03 09:16 | CON ---
[address] [address] CONSULTATION Name: MARISEL SHERMAN Room: [address] IN .R.#: [id number] Admission: 03/01/18 Attend Phys: Jigar Estevez MD Discharge: Date of : 34 Report #: [id number] THIS REPORT FOR: //name// CC: Jigar Alva DATE OF SERVICE: 03/02/2018 INFECTIOUS DISEASE CONSULTATION ATTENDING PHYSICIAN: Jigar Estevez M.D. REASON FOR EVALUATION: Positive blood culture. HISTORY OF PRESENT ILLNESS: Chart reviewed, patient examined. This is an 82-year-old woman with extensive medical history including end-stage renal disease, on hemodialysis. It was felt over the course of the 72 hours prior to her visit to the Emergency Room, she was increasingly encephalopathic with weakness, poor appetite and p.o. intake. She missed a dialysis on Sunday. She notably has a history of dementia, also chronic pain syndrome for which she takes narcotics. As part of the initial evaluation, blood cultures were collected, now 1 out of 2 was positive for Gram-positive cocci. She was given empiric dose of vancomycin. At this point, she is more responsive. She complains of right-sided chest pain, which she states has been chronic for the last 5 years, seems to be worse with deep breathing and cough. There is a question of a pleuritic component. She admits to the poor p.o. intake, did eat some breakfast. Denies significant gastrointestinal-related complaints at the moment. She does not complain of dyspnea. ALLERGIES: LISTED TO TAPE, PENICILLIN, CODEINE, ASPIRIN, INFLUENZA AND PNEUMOCOCCAL VACCINES. CURRENT MEDICATIONS: Include ergocalciferol, vancomycin, apixaban, calcium, cholecalciferol, gabapentin, promethazine, ondansetron as needed, p.r.n. analgesics. PAST MEDICAL HISTORY: As described above, history of chronic renal failure, on hemodialysis thrice weekly. He has history of cardiomyopathy with congestive heart failure, pulmonary hypertension, chronic pain syndrome with polypharmacy. Some dementia, previous gastrectomy, tonsillectomy, cholecystectomy, hysterectomy, history of hypertension and reflux. SOCIAL HISTORY: Nonsmoker, no ethanol. FAMILY HISTORY: [place] [address] CONSULTATION Name: MARISEL SHERMAN Michelle Room: [address]#: [id number] Admission: 03/01/18 Attend Phys: Jigar Estevez MD Discharge: Date of : 34 Report #: [id number] REVIEW OF SYSTEMS: Ten-point otherwise unremarkable with the exception of the above. PHYSICAL EXAMINATION: GENERAL: She appears chronically ill. She is perhaps mildly encephalopathic, in mild to moderate distress, appears undernourished. VITAL SIGNS: Temperature 98.4, pulse 80, respirations 18, blood pressure 112/47. SKIN: Warm, dry. HEENT: Normocephalic. Extraocular muscles intact. NECK: Supple. LUNGS: Does have a few scattered crackles at the bases. HEART: Regular with some ectopy, has a soft systolic murmur. ABDOMEN: Mildly distended, soft. There are no apparent peritoneal signs. No tenderness. EXTREMITIES: Distal lower extremities, trace edema. GENITOURINARY: Deferred. RECTAL: Deferred. LABORATORY DATA: Electrolytes: Sodium 135, potassium 4.5, chloride 98, bicarbonate is 30, anion gap of 7, BUN and creatinine 28 and 3.8, was 7.0 predialysis. Glucose of 92. Blood cultures 1 out of 2 with Gram-positive cocci. Prealbumin of 19.1. TSH 1.491. Lactic acid 1.0. CBC: White count 3.7, H and H 11.0 and 32.2, platelets of 102. CT of the head without contrast, no acute abnormality, chronic changes given her age. Chest x-ray, elevation of right hemidiaphragm, no evidence of pneumonitis or pneumothorax. ASSESSMENT: Positive blood culture. The patient is certainly a risk for true septicemia. She has got multiple reasons to be encephalopathic. Agree with empiric antimicrobial therapy. We will await those results. At this point, would see how she does clinically pending as opposed to additional diagnostic testing. <ELECTRONICALLY SIGNED> By: Griffin Garcia MD 03/03/18 0916 1108 [id number] Garcia MD /nt
[2018-03-03 11:34] VITALS: BP 93/43
--- NOTE | 2018-03-03 12:22 | EKG ---
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: RUBY : 1935 Requested By: Valente Champion Order Number: [id number] Justus MD: Chau Montelongo Measurements Intervals [place] Rate: 74 P: 59 WV: 193 QRS: 14 QRSD: 103 T: 53 QT: 434 QTc: 482 Interpretive Statements Sinus rhythm Minimal ST depression, anterolateral leads Compared to ECG 03/02/2018 08:37:16 no change Electronically Signed On 03-03-2018 12:22:35 LICENSED VOCATIONAL NURSE by Chau Montelongo [email or web address] <ELECTRONICALLY SIGNED> By: Chau Montelongo MD, [facility] 03/03/18 1222 1019 [id number] Chau Montelongo MD, [facility] /EPI
[2018-03-03 16:52] VITALS: BP 96/42
[2018-03-03 20:30] VITALS: BP 117/45
[2018-03-04 04:46] LABS: CALCIUM 7.6 mg/dL (8.5-10.1); MAGNESIUM 2.1 mg/dL (1.8-2.4); POTASSIUM 4.6 mmol/L (3.5-5.1)
[2018-03-04 05:24] LABS: CREATININE 5.8 mg/dL (0.6-1.3)
[2018-03-04 08:00] VITALS: BP 178/77
--- NOTE | 2018-03-04 09:59 | CON ---
[address] [address] CONSULTATION Name: MARISEL SHERMAN Room: [address] IN .R.#: [id number] Admission: 03/01/18 Attend Phys: Jigar Estevez MD Discharge: Date of : 34 Report #: [id number] THIS REPORT FOR: //name// CC: Jigar Alva DATE OF SERVICE: 03/02/2018 CONSULTING PHYSICIAN: Jigar Estevez MD REASON FOR NEPHROLOGY CONSULTATION: End-stage renal disease, for maintenance hemodialysis. MAIN REASON FOR ADMISSION: Confusion. HISTORY OF PRESENT ILLNESS: This is an 82-year-old female who has past medical history of end-stage renal disease, on hemodialysis every Sunday, Sunday and Sunday, but missed treatments on Sunday because of ice and Sunday because she came to the ER because of confusion and decreased appetite. Apparently, she has history of polypharmacy encephalopathy in the past too. She has history of chronic diastolic congestive heart failure as well. She was found to be in AFib, which is new onset. It was treated in the ER and was started on heparin drip and Cardiology was consulted for that. She had an echocardiogram, which showed an ejection fraction of 60-65%. Currently, she is resting. REVIEW OF SYSTEMS: Confusion, which seems to have improved, she is currently resting, so review of systems was kind of limited. There is no reported nausea, vomiting or diarrhea. No shortness of breath. ALLERGIES: ASPIRIN, CODEINE, INFLUENZA VIRUS, PENICILLINS, PNEUMOCOCCAL VACCINE AND TAPE. HOME MEDICATIONS: Include docusate sodium, polyethylene glycol, cholecalciferol, ergocalciferol, gabapentin. PAST MEDICAL AND SURGICAL HISTORY: Includes right total knee replacement, gastrectomy, hemorrhoids, tonsillectomy, arthroscopy, hysterectomy, cholecystectomy, D and C, hypertension, ESRD, on dialysis Sunday, Sunday and Sunday; chronic diastolic congestive heart failure, pulmonary hypertension, respiratory failure, left arm fistula, polypharmacy, cognitive impairment, chronic pain. FAMILY HISTORY: Noncontributory. SOCIAL HISTORY: She did not report any history of smoking or use [place] [address] CONSULTATION Name: MARISEL SHERMAN Room: [address]#: [id number] Admission: 03/01/18 Attend Phys: Jigar Estevez MD Discharge: Date of : 34 Report #: [id number] PHYSICAL EXAMINATION: VITAL SIGNS: Blood pressure is 114/61, respiratory rate is 20, pulse rate is 89, temperature is 36.4, pulse ox is 93% and she was on room air. GENERAL: She is currently resting, but she woke up when I called her name, but did not want to talk much because she was sleepy. HEAD, EYES, EARS, NOSE AND THROAT: Mucous membranes are moist. NECK: There is no JVD. CHEST: Bilaterally clear to auscultation. No crackles or wheezing. CARDIOVASCULAR: S1, S2 normal. No murmurs. ABDOMEN: Soft, nontender, nondistended. Bowel sounds are present. EXTREMITIES: She has a left arm AV fistula with good bruit and thrill. Lower extremity, there was no edema. NEUROLOGIC: Grossly seems to be intact. PSYCHOLOGICAL: Cannot assess right now. LABORATORY DATA: Hemoglobin 11.0, WBC 3.7, platelet count is 102. Sodium was 137, potassium was 5.1. Other labs are reviewed. IMAGING: Head CT, chest x-ray were reviewed. ASSESSMENT: 1. End-stage renal disease, on hemodialysis every Sunday, Sunday, Sunday. Missed dialysis on Sunday. 2. Anemia of chronic kidney disease. Hemoglobin 11.0 at goal. 3. New onset atrial fibrillation, Cardiology has been consulted. 4. Confusion, seems to have resolved now, but it is hard to tell because she was resting right now. 5. Hypertension, blood pressure is controlled. PLAN: 1. We got her dialyzed yesterday and she did not complete a full treatment, but does not seem to be in acute need for dialysis today. She had about 3 hours of dialysis yesterday. We will likely not plan on dialyzing her again on Sunday. 2. Hemoglobin is at goal. 3. Atrial fibrillation management as per primary team. Thank you for this consultation. We will continue to follow along with you for dialysis needs. Please call with any questions. <ELECTRONICALLY SIGNED> By: Kaya Blair MD 03/04/18 0959 0841 [id number] Blair MD /nt
[2018-03-04 15:56] VITALS: BP 140/58
[2018-03-04 21:00] VITALS: BP 157/82
[2018-03-05 04:40] LABS: HEMATOCRIT 33.7 % (37.0-47.0); HEMOGLOBIN 11.2 gm/dL (12.0-15.0); MCH 33.1 pg (26.0-34.0); MCHC 33.2 g/dL (28.0-37.0); MCV 99.8 fL (80.0-100.0); MPV 9.4 fl. (7.2-11.1); NUCLEATED RBCS 0 /100WBC; PLATELET COUNT* 86 thou/uL (150-400); RBC 3.37 mil/uL (4.20-5.00); WBC 3.2 thou/uL (4.0-11.0)
[2018-03-05 05:52] LABS: ABSOLUTE EOSINOPHILS 0.1 thou/uL (0.0-0.7); ABSOLUTE LYMPHOCYTES 0.5 thou/uL (0.8-5.3); ABSOLUTE MONOCYTES 0.2 thou/uL (0.0-1.2); ABSOLUTE NEUTROPHILS 2.3 thou/uL (1.6-8.1)
[2018-03-05 05:53] LABS: ANISOCYTOSIS 1+; PLATELET ESTIMATE DECREASED; POIKILOCYTOSIS 1+
[2018-03-05 16:00] VITALS: BP 166/80
[2018-03-05 21:00] VITALS: BP 151/76
[2018-03-06 04:51] LABS: HEMOGLOBIN 11.1 gm/dL (12.0-15.0); MCH 33.2 pg (26.0-34.0); MCHC 33.6 g/dL (28.0-37.0); MCV 98.8 fL (80.0-100.0); MPV 9.4 fl. (7.2-11.1); RBC 3.34 mil/uL (4.20-5.00); RDW-CV 15.8 % (10.5-14.5); WBC 3.4 thou/uL (4.0-11.0)
[2018-03-06 06:21] LABS: CALCIUM 8.5 mg/dL (8.5-10.1); MAGNESIUM 2.3 mg/dL (1.8-2.4); POTASSIUM 4.8 mmol/L (3.5-5.1)
[2018-03-06 06:23] LABS: CREATININE 4.5 mg/dL (0.6-1.3)
[2018-03-06 08:00] VITALS: BP 129/67
[2018-03-06 13:12] LABS: ANA INTERPRETATION Negative (Negative)
[2018-03-06 15:47] VITALS: BP 162/73
[2018-03-06 18:10] LABS: ANA INTERPRETATION Positive (())
[2018-03-06 20:30] VITALS: BP 143/62
[2018-03-07 08:00] VITALS: BP 148/80
[2018-03-07] MEDS ORDERED: MELATONIN5 M1 PO (08:50)
[2018-03-07] MEDS ORDERED: ARICEPT 5 MG TAB5 MG PO (08:50)
[2018-03-07] MEDS ORDERED: OXYCODONE HCL 55 MG PO (08:50)
[2018-03-07] MEDS ORDERED: LIDOCAINE30 GM TOP (08:50)
[2018-03-07] MEDS ORDERED: ACETAMINOPHEN325 M1 PO (08:50)
[2018-03-07] MEDS ORDERED: TRAMADOL 50 MG50 MG PO (08:50)
--- NOTE | 2018-03-07 08:56 | CON ---
[address] [address] CONSULTATION Name: MARISEL SHERMAN Room: [address] IN .R.#: [id number] Admission: 03/01/18 Attend Phys: Jigar Estevez MD Discharge: Date of : 34 Report #: [id number] THIS REPORT FOR: //name// CC: Jigar Alva TYPE OF REPORT: Cardiology consultation. HISTORY OF PRESENT ILLNESS: I was asked by Dr. Estevez to see this 82-year-old white female in Cardiology consultation for evaluation and treatment of atrial fibrillation. Upon examination of the EKGs, I do believe this lady in fact has atrial fibrillation and believe she is in sinus rhythm with sinus arrhythmia and occasional atrial premature beats. Her initial EKG done in the ER showed a lot of tremor artifact and was read by the computer showing atrial fibrillation. Her EKG today does not show atrial fibrillation and she has not been in atrial fibrillation on the monitor. She again has normal sinus rhythm with some sinus arrhythmia and rare atrial premature beats. She is not symptomatic. Her heart rate when she first came in the ER was only 78. She is not on any drugs to control heart rate in atrial fibrillation. Her heart rate today is 80. She does have P waves that are often of unusual shape. She was brought to the ER because of mental status changes. She does allegedly have dementia. She is not on any anti-dementia medications. She did miss her dialysis on Sunday. She does have chronic chest pain that is chest wall pain. She is quite tender to the touch. It is in the area where she had a chronic indwelling catheter. I believe initially for her end-stage renal disease when her dialysis was first started. She does have end-stage renal disease. She has some chronic diastolic heart failure, essential hypertension, obesity, obstructive sleep apnea, GERD and pulmonary hypertension from an echo done on this admission with a pulmonary pressure of 73. There was also grade 1 diastolic dysfunction. She cannot give much of a history. She states today she is not confused and she actually answered some questions relatively appropriately today. She did not remember a lot of things, however. PAST MEDICAL HISTORY: Remarkable for previous partial gastrectomy, tonsillectomy and arthroscopy. She has had a D and C x 2, hiatus hernia repair, cholecystectomy and hysterectomy. Her dialysis days are Sunday, Sunday and Sunday. She does have a history of congestive heart failure and respiratory failure. ALLERGIES: Include TAPE, PENICILLIN, CODEINE, ASPIRIN, INFLUENZA VIRUS VACCINE and PNEUMOCOCCAL VACCINE. MEDICATIONS: Include calcium acetate 667 mg t.i.d., vitamin D 1000 units daily, Colace 100 mg daily, ergocalciferol 5000 units weekly by mouth. Gabapentin 600 mg 3 times a day, oxycodone 5 mg q. 4 hours p.r.n. pain and MiraLax p.r.n. REVIEW OF SYSTEMS: She cannot answer for a [place] [address] CONSULTATION Name: MARISEL SHERMAN Room: [address]#: [id number] Admission: 03/01/18 Attend Phys: Jigar Estevez MD Discharge: Date of : 34 Report #: [id number] FAMILY HISTORY: She could not remember her family history. SOCIAL HISTORY: She does not smoke, drink or use illegal drugs. According to her daughter, she has had low appetite, but really that is the only abnormality in terms of the review of systems. PHYSICAL EXAMINATION: GENERAL: She presents as a well-developed, well-nourished, obese white female, in no acute distress. VITAL SIGNS: Her pulse was 89 and regular, blood pressure was 122/60, respirations are 20 and regular and temperature is 97.5. HEENT: Her head was atraumatic. Eyes clear. NECK: Supple. There is no jugular venous distention or hepatojugular reflux. Thyroid is not enlarged. There is no adenopathy. SKIN: Warm and dry. Mucous membranes are moist. LUNGS: Clear to auscultation and percussion. HEART: Revealed normal first and second heart sound. There was no S4; no S3 and no murmurs, rubs, thrills, heaves or gallops. PMI was not displaced. ABDOMEN: Soft, flat and nontender. No palpable masses. No organomegaly. EXTREMITIES: Reveal no cyanosis, clubbing or edema. NEUROLOGICAL: The patient clearly had some dementia issues but was not particularly confused today. She did talk normally and move all extremities normally and follow commands. LABORATORY STUDIES: Her labs include a sodium 137, chloride 101, potassium 5.1, CO2 of 28, BUN 63, creatinine 7.0 and blood sugar was 96. White count was normal at 3700 with a hemoglobin of 11.0. Troponin was less than 0.06. NT-pro-BNP was 7302. Predialysis, she was dialyzed yesterday. RADIOLOGICAL DATA: CT of the head showed microvascular changes and cerebral atrophy. EKG is as described above. Chest x-ray showed unchanged elevation of the right hemidiaphragm and there were no acute pulmonary or cardiac problems. IMPRESSION: 1. Benign arrhythmia but not atrial fibrillation. 2. Mental status changes, likely due to her end-stage renal disease and missed dialysis on Sunday in addition to her dementia. 3. Chronic diastolic heart failure that is currently compensated. 4. Dialysis. 5. Essential hypertension. 6. Obesity. 7. Obstructive sleep apnea. 8. Gastroesophageal reflux disease. 9. Chest wall pain, probably secondary to her chronic indwelling catheter site from the past. [address] [address] CONSULTATION Name: MARISEL SHERMAN Room: [address]#: [id number] Admission: 03/01/18 Attend Phys: Jigar Estevez MD Discharge: Date of : 34 Report #: [id number] 10. Pulmonary hypertension, likely related to poorly treated obstructive sleep apnea. RECOMMENDATIONS: I would continue to get her dialyzed and deal with her issue with her obstructive sleep apnea and pulmonary hypertension. She probably needs more aggressive work with her CPAP. Thank you very much for asking me to see the patient. If there are any questions, please feel free to contact me. <ELECTRONICALLY SIGNED> By: Ritchie Benton MD, FACC 03/07/18 0856 [id number]. Chris Champion MD, FACC /nt
[2018-03-07 16:18] VITALS: BP 143/81
[2018-03-08 08:15] VITALS: BP 127/52
--- NOTE | 2018-03-08 11:08 | CON ---
[address] [address] CONSULTATION Name: MARISEL SHERMAN Room: [address] IN ..#: [id number] Admission: 03/01/18 Attend Phys: Jigar Estevez MD Discharge: Date of : 34 Report #: [id number] THIS REPORT FOR: //name// CC: Jigar Alva DATE OF SERVICE: 03/06/2018 REASON FOR CONSULTATION: Pancytopenia. REQUESTING PHYSICIAN: Dr. Allen. HISTORY OF PRESENT ILLNESS: The patient is an 82-year-old woman with multiple medical problems including end-stage renal disease, on hemodialysis; dementia, anemia, who was admitted to the hospital with worsening mental status over 72 hours. She has been found to have positive blood cultures. The patient was started on antibiotics. On admission, it is noted this patient has mild pancytopenia and hematology consult is requested. The patient is evaluated in her room. She is sitting in the chair recliner. She opens her eyes, but she cannot give me any history. PAST MEDICAL HISTORY: Reviewed from the chart since the patient has had longstanding cytopenia. PHYSICAL EXAMINATION: GENERAL: Reveals chronically ill-appearing woman, not in acute distress, lethargic, but arousable, not giving me any history. VITAL SIGNS: Blood pressure 129/67, heart rate is 75, temperature 98.0, respirations 18. NECK: Supple. HEART: S1, S2. ABDOMEN: Obese. EXTREMITIES: Lower extremity +1 edema. MENTAL STATUS: Alert. LABORATORY DATA: White count 3.4, hemoglobin 11.1, platelets 91, MCV 98.8. Sodium 139, potassium 4.8, total protein 6.2, albumin 2.8. B12 771. RBC . ASSESSMENT AND PLAN: Pancytopenia, chronic, stable mild. B12 and folate are normal. TSH normal. Plan to order serum protein electrophoresis. Most likely, the patient has underlying mild myelodysplastic syndrome and the patient is not an acute problem. I would suggest the patient to follow up with hematology when she is discharged from the hospital. I will continue to monitor [place] [address] CONSULTATION Name: MARISEL SHREMAN Room: [address] IN [facility]#: [id number] Admission: 03/01/18 Attend Phys: Jigar Estevez MD Discharge: Date of : 34 Report #: [id number] Thank you very much for allowing me to participate in the care of this patient. <ELECTRONICALLY SIGNED> By: Tamir Philippe MD 03/08/18 1108 1535 [id number] Philippe MD /nt
[2018-03-08 16:00] VITALS: BP 138/70
[2018-03-08 16:08] LABS: M-SPIKE Not Observed g/dL (Not Observed)
[2018-03-08 20:00] VITALS: BP 136/62
[2018-03-09 08:30] VITALS: BP 136/77
[2018-03-09 10:36] VITALS: BP 136/77
[2018-03-09 12:15] VITALS: BP 136/77
== END 2018-03-09 12:15 | DRG 871 ==
LOC: M.ERS 10:59 → M.TBA-ER 13:26 → M.ORTHSURG 13:26 → M.2W 19:14 → M.ORTHSURG 03-03 13:55
PROVIDERS: Family Medicine; Internal Medicine; Internal Medicine Hematology & Oncology; ADMIT Internal Medicine
PROC: 5A1D70Z Performance of Urinary Filtration, Intermittent, Less than 6 Hours Per Day (ICD-10-PCS; principal; 2018-03-01)
PROC: 5A1D70Z Performance of Urinary Filtration, Intermittent, Less than 6 Hours Per Day (ICD-10-PCS; 2018-03-04)
PROC: 5A1D70Z Performance of Urinary Filtration, Intermittent, Less than 6 Hours Per Day (ICD-10-PCS; 2018-03-06)
PROC: 5A1D70Z Performance of Urinary Filtration, Intermittent, Less than 6 Hours Per Day (ICD-10-PCS; 2018-03-08)
DX: A41.9 Sepsis, unspecified organism (principal); N18.6 End stage renal disease; I13.2 Hypertensive heart and chronic kidney disease with heart failure and with stage 5 chronic kidney disease, or end stage renal disease; I50.32 Chronic diastolic (congestive) heart failure; D61.818 Other pancytopenia; G93.49 Other encephalopathy; F03.90 Unspecified dementia, unspecified severity, without behavioral disturbance, psychotic disturbance, mood disturbance, and anxiety; D46.9 Myelodysplastic syndrome, unspecified; I49.1 Atrial premature depolarization; G62.9 Polyneuropathy, unspecified; E66.9 Obesity, unspecified; G47.33 Obstructive sleep apnea (adult) (pediatric); I27.20 Pulmonary hypertension, unspecified; D63.1 Anemia in chronic kidney disease; K21.9 Gastro-esophageal reflux disease without esophagitis; Z99.2 Dependence on renal dialysis; Z90.49 Acquired absence of other specified parts of digestive tract; Z90.710 Acquired absence of both cervix and uterus; Z88.6 Allergy status to analgesic agent; Z88.5 Allergy status to narcotic agent; Z88.0 Allergy status to penicillin; Z88.7 Allergy status to serum and vaccine; Z91.048 Other nonmedicinal substance allergy status; Z68.37 Body mass index [BMI] 37.0-37.9, adult

== ENCOUNTER 2018-05-20 13:58 | Inpatient (IN) | payer OTHER ==
[2018-05-20] VITALS (11 sets, daily range): BP systolic 100–138; BP diastolic 46–78
[~2018-05-20] VITALS: Ht 162.6 cm; Wt 100.2 kg
[~2018-05-20 13:58] MED LIST changes: +ACETAMINOPHEN325 M1 PO; +ARICEPT 5 MG TAB5 MG PO; +CALCIUM ACETAT667 MG PO; +CYMBALTA30 MG PO; +KEFLEX500 M1 PO; +LIDOCAINE30 GM TOP; +MELATONIN5 M1 PO; +NEPHRO-VITE TA0.8 MG PO; +TYLENOL EXTRA500 MG PO
[2018-05-20 14:26] LABS: HEMATOCRIT 39.3 % (37.0-47.0); HEMOGLOBIN 13.3 gm/dL (12.0-15.0); MCH 31.5 pg (26.0-34.0); MCHC 33.8 g/dL (28.0-37.0); MCV 93.1 fL (80.0-100.0); MPV 8.6 fl. (7.2-11.1); NUCLEATED RBCS 0 /100WBC; PLATELET COUNT* 195 thou/uL (150-400); RBC 4.22 mil/uL (4.20-5.00); RDW-CV 16.8 % (10.5-14.5); WBC 8.6 thou/uL (4.0-11.0)
[2018-05-20 14:33] LABS: APTT 42.1 Seconds (25.0-31.3); PROTIME 10.7 Seconds (9.20-11.50)
[2018-05-20 14:42] LABS: CALCIUM 8.5 mg/dL (8.5-10.1); CREATININE 4.4 mg/dL (0.6-1.3); POTASSIUM 4.1 mmol/L (3.5-5.1); TROPONIN-I LEVEL 0.06 ng/mL (<0.06)
[2018-05-20 14:43] LABS: ALBUMIN 3.1 g/dL (3.4-5.0); TOTAL BILIRUBIN 0.5 mg/dL (<0.1-1.0); TOTAL PROTEIN 6.7 g/dL (6.4-8.2)
[2018-05-20 14:57] LABS: ABSOLUTE EOSINOPHILS 0.2 thou/uL (0.0-0.7); ABSOLUTE LYMPHOCYTES 0.7 thou/uL (0.8-5.3); ABSOLUTE MONOCYTES 0.6 thou/uL (0.0-1.2); ABSOLUTE NEUTROPHILS 7.1 thou/uL (1.6-8.1); ANISOCYTOSIS Occasional; PLATELET ESTIMATE ADEQUATE
--- NOTE | 2018-05-20 16:10 | NUR ---
ROGELIO met with pt and pt dtr, teresa, katie at the request to meet with pt about DPOA/AD. Pt granddtr explained that she was wondering more about legal concerns, financial DPOA, preparing for if something happens with pt, pt granddtr would be prepared to "take care of her and everything". Pt completed DPOA naming her granddtr agent and dtr alternate agent. Pt granddtr explained that dialysis clinic hotlined pt bc they felt pt should be in nursing facility, pt granddtr stating that she is taking care of pt per pt wishes. SW provided Elder Law referral for any legal questions/assistance.
--- NOTE | 2018-05-20 20:12 | NUR ---
RECEIVED REPORT FROM SHARYN MELISSA IN ER. PT ARRIVED TO TELE FLOOR AROUND 183. PT SETTELED, ORIENTED TO ROOM, BED AND CALL LIGHT. VITALS CHARTED. FAMILY AT BEDSIDE. FALL PRECAUTIONS IN PLACE. CALL LIGHT IS WITHIN REACH. HOURLY ROUNDING. REPORT GIVEN TO LUCERO MELISSA. NOC NURSE TO COMPLETE ADMISSION.
[2018-05-21] VITALS (7 sets, daily range): BP systolic 100–116; BP diastolic 46–72
--- NOTE | 2018-05-21 05:02 | NUR ---
PT CARE ASSUMED AT 1930. SAT MAINTAINED IN NC AND BIPAP. ALERT AND ORIENTED X4. CALL LIGHT WITHIN REACH AND BED IN LOW POSITION. C/O PAIN, MEDICATION GIVEN PER EMAR. CARDIZEM DRIP RUNNING. HOURLY ROUNDING DONE FOR PT SAFETY.
[2018-05-21 07:04] LABS: ABSOLUTE BASOPHILS 0.1 thou/uL (0.0-0.2); ABSOLUTE EOSINOPHILS 0.3 thou/uL (0.0-0.7); ABSOLUTE LYMPHOCYTES 1.3 thou/uL (0.8-5.3); NUCLEATED RBCS 0 /100WBC; WBC 7.4 thou/uL (4.0-11.0)
[2018-05-21 07:07] LABS: ABSOLUTE MONOCYTES 0.6 thou/uL (0.0-1.2); ABSOLUTE NEUTROPHILS 5.1 thou/uL (1.6-8.1); BASOPHILS 1.2 %; EOSINOPHILS 3.8 %; HEMATOCRIT 37.7 % (37.0-47.0); HEMOGLOBIN 12.8 gm/dL (12.0-15.0); LYMPHOCYTES 17.7 %; MCH 31.8 pg (26.0-34.0); MCV 93.6 fL (80.0-100.0); MPV 8.7 fl. (7.2-11.1); PLATELET COUNT* 144 thou/uL (150-400); POLYS 69.3 %; RBC 4.03 mil/uL (4.20-5.00); RDW-CV 17.3 % (10.5-14.5)
[2018-05-21 07:46] LABS: CALCIUM 8.5 mg/dL (8.5-10.1); POTASSIUM 4.2 mmol/L (3.5-5.1)
[2018-05-21 07:52] LABS: CREATININE 5.5 mg/dL (0.6-1.3)
--- NOTE | 2018-05-21 09:22 | NUR ---
ASSUMED CARE OF PT AT 0730. PT RESTING IN BED. PT A&0X4, FORGETFUL AT TIMES. PT COMPLAINS OF PAIN TO CHEST AND GENERALIZED- TREATED WITH PRN OXY WITH PARTIAL RELIEF. 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 CARDIZEM GTT INFUSING AT 10ML/HR. RATE IN THE LOW 100'S. BLOOD PRESSURE STABLE. PT NPO FOR CARDIOLOGY CONSULT. JOVANNI CORTEZ, CARDIOLOGY SERVICE ADMINISTRATOR HERE TO SEE PT. NO NEW ORDERS RECEIVED AT THIS TIME. PT ABLE TO EAT BREAKFAST. PT ON 2L NC SAT UPPER 90'S. DENIES ANY SHORTNESS OF BREATH. PT INCONT OF BOWEL AND URINE. BOOT NOTED TO RIGHT FOOT, PT UP WITH MAX ASSIST. PT GOAL FOR TODAY IS CARDIOLOGY CONSULT, MAINTAIN HEART RATE BELOW 100, COMPLIANT WITH WOUND CARE/SKIN TEAR TREATMENT.AM ASSESSMENT CHARTED. MEDICATIONS PER APR. PT REPOSITIONED EVERY 2 HOURS FOR COMFORT. HOURLY ROUNDING OBSERVED. BED IN LOW POSITION. BED ALARM IN PLACE. FALL PRECAUTIONS IN PLACE. CALL LIGHT WITHIN REACH. WILL CONTINUE PLAN OF CARE.
--- NOTE | 2018-05-21 11:28 | EKG ---
[place] [address] ELECTROCARDIOGRAM REPORT Name: MARISEL SHERMAN Room: [address] ADM IN [facility].#: [id number] Admission: 05/20/18 Attend Phys: Vinh Leslie MD Discharge: Date of : 33 Report #: [id number] THIS REPORT FOR: //name// [facility] ED Test Date: 2018-05-20 Test Time: 14:04:12 Pat Name: MARISEL SHERMAN Department: Room: [facility] Gender: F Twisting Department End Finder: MS : 1935 Requested By: Dominik Camacho Order Number: [id number] MD: Issa Pat Measurements Intervals [place] Rate: 127 P: TX: QRS: -31 QRSD: 83 T: 136 QT: 268 QTc: 390 Interpretive Statements Atrial fibrillation Left axis deviation Probable anterior infarct, age indeterminate Abnormal T, consider ischemia, diffuse leads Lateral leads are also involved Baseline wander in lead(s) V1,V2,V3,V4,V5,V6 Electronically Signed On 05-21-2018 11:28:40 CDT by Issa Pat [email or web address] <ELECTRONICALLY SIGNED> By: Issa Pat MD, FACC 05/21/18 1128 1404 1404 Issa Pat MD, FACC /EPI
--- NOTE | 2018-05-21 14:07 | NUR ---
CM spoke with Pt's granddtr/DPOA via phone. Per granddtr, Pt has been residing at [facility] since her dc from the hospital on 05/16, plan [place] TAWNYA will ask [facility] to iniate insurance auth closer to [place]. Pt is current at [facility] on a MWF schedule, when Pt is at home, family provides transportation. Granddtr inquired into completing a financial DPOA, per granddtr, she thinks that Pt has declined significantly. TAWNYA informed tersea that she can locate a notary in the area, via the notary website, that can come to the hospital and notarize paperwork. Granddtr plans to set that up. Plan post skilled is for Pt to return home with family. Following.
--- NOTE | 2018-05-21 17:06 | NUR ---
NO ACUTE CHANGES THROUGHOUT SHIFT. REFER TO CHARTING. CARDIOLOGY CONSULT IN PLACE. MEDICATION ADJUSTMENTS MADE-PT STARTED ON FLECAINIDE AND METOPROLOL. IV CARDIZEM DISCONTINUED. PT CONTINUES TO BE IN AFIB. RATE CONTROLLED IN THE 80'S. PT ON 2L NC/RA SAT UPPER 90'S. PT TAKES OFF AND ON. PT UP WITH 1 ASSIST. PT INCONT OF BOWEL AND BLADDER TODAY. PT, OT AND ST ORDERED TODAY PER DR CONTRERAS. PT PROGRESSING TOWARDS GOALS. MEDICATIONS PER APR. PT REPOSITIONED EVERY 2 HOURS FOR COMFORT. HOURLY ROUNDING OBSERVED. BED IN LOW POSITION. BED ALARM IN PLACE. FALL PRECAUTIONS IN PLACE. CALL LIGHT WITHIN REACH. WILL CONTINUE PLAN OF CARE.
[2018-05-22] VITALS (7 sets, daily range): BP systolic 76–111; BP diastolic 36–66
--- NOTE | 2018-05-22 04:46 | NUR ---
PT CARE ASSUMED AT 1930. ALERT AND ORIENTED X4, CAN BE FORGETFUL. SAT MAINTAINED IN BIPAP AT NIGHT. CALL LIGHT WITHIN REACH AND BED IN LOW POSITION. C/O PAIN, MEDICTAION GIVEN PER EMAR. PT IS INCONTINENT. HOURLY ROUNDING DONE FOR PT SAFETY.
--- NOTE | 2018-05-22 09:05 | CON ---
[address] [address] CONSULTATION Name: MARISEL SHERMAN Room: [address] IN [facility].#: [id number] Admission: 05/20/18 Attend Phys: Vinh Leslie MD Discharge: Date of : 33 Report #: [id number] THIS REPORT FOR: //name// CC: Yusuf Disla [facility] DATE OF SERVICE: 05/21/2018 ATTENDING PHYSICIAN: Dr. Leslie. REASON FOR NEPHROLOGY CONSULTATION: End-stage renal disease for hemodialysis needs. REASON FOR ADMISSION: While on dialysis, she had chest pain and rapid AFib. HISTORY OF PRESENT ILLNESS: This is an 82-year-old female who has a past medical history of obesity; end-stage renal disease, on hemodialysis every Sunday, Sunday, Sunday at [facility] under the care of Dr. Nathan and other medical problems. She was brought in from the dialysis unit because she developed chest pain while she was on dialysis. Her ____. Also, she was found to be a little hypotensive, her systolic blood pressure was in 100. She was given 500 mL of normal saline en route to the ER here and she was found to be in atrial fibrillation with RVR, which is apparently new onset for her. She is currently still very tender to touch on her chest and was asking for pain medication. She looks comfortable. She did about half of her dialysis yesterday. Heart rate is better now. ALLERGIES: PENICILLIN, CODEINE, ASPIRIN, INFLUENZA VACCINE, AND PNEUMOCOCCAL VACCINE. REVIEW OF SYSTEMS: As mentioned in the history of present illness, otherwise negative. HOME MEDICATIONS: Include donepezil, melatonin, oxycodone, lidocaine, cholecalciferol, docusate, Rocaltrol, calcium acetate, polyethylene glycol, ondansetron, duloxetine, folic acid, gabapentin, and acetaminophen. PAST MEDICAL AND SURGICAL HISTORY: Includes knee replacement; hysterectomy; hemorrhoid surgery; tonsillectomy; arthroscopy; D and C; cholecystectomy; GERD; end-stage renal disease, on hemodialysis every Sunday, Sunday, Sunday; diastolic congestive heart failure, ejection fraction of 55% in 01/2016; history of pulmonary hypertension; respiratory failure; left arm AV fistula; polypharmacy; cognitive impairment, and chronic pain. FAMILY HISTORY: Not significant in this 82[place] [address] CONSULTATION Name: MARISEL SHERMAN Room: [address]#: [id number] Admission: 05/20/18 Attend Phys: Vinh Leslie MD Discharge: Date of : 33 Report #: [id number] SOCIAL HISTORY: She lives at home. Does not smoke, drink alcohol, or use illicit drugs. PHYSICAL EXAMINATION: VITAL SIGNS: Blood pressure is 108/67, pulse is 67, temperature is 36.9, respiratory rate is 19, and she is on 2 liters oxygen with nasal cannula, saturating at 97%. GENERAL: She is awake, alert and oriented x3. HEAD, EYES, EARS, NOSE AND THROAT: Mucous membranes are moist. NECK: There is no JVD . CHEST: Bilaterally diminished breath sounds. No crackles or wheezing. CARDIOVASCULAR: S1, S2 normal. No murmur. ABDOMEN: Soft, nontender, bowel sounds present. EXTREMITIES: There is 1+ lower extremity edema bilaterally. DIALYSIS ACCESS: She has a left arm AV fistula with good bruit and good thrill. NEUROLOGICAL: Gross neurological function is intact. PSYCHIATRIC: Mood and affect seems to normal. LABORATORY DATA: Hemoglobin is 12.8, platelet count is 144, potassium is 4.2. Other labs are reviewed. IMAGING: Chest x-ray was reviewed. ASSESSMENT: 1. End-stage renal disease, on hemodialysis every Sunday, Sunday, Sunday, last dialysis was yesterday. 2. Chest pain while on dialysis. She has a history of chronic chest pain and troponin is only mildly elevated at 0.08, defer to primary. 3. Atrial fibrillation with rapid ventricular response, apparently new onset, heart rate is better controlled now, primary is managing. 4. Hypertension. Blood pressure is currently controlled. 5. Chronic diastolic congestive heart failure, currently looks more or less euvolemic. PLAN: 1. The patient had half of her dialysis yesterday and currently, there is no acute need for dialysis so we will dialyze her tomorrow. 2. We will continue to follow for her dialysis needs. <ELECTRONICALLY SIGNED> By: Kaya Blair MD 05/22/18 0905 [id number] Blair MD /nt
--- NOTE | 2018-05-22 11:25 | NUR ---
DC orders written, pending cards signing off. Updated [facility] and granddtr. Awaiting dialysis chair time, to arrange transport post dialysis tx. Faxed referral and dc orders. CM to update facility and granddtr once dialysis end time is confirmed. Following.
[2018-05-22] MEDS ORDERED: FLECAINIDE ACET50 M1 PO (17:48)
[2018-05-22] MEDS ORDERED: CARDIZEM CD120 MG PO (18:14)
[2018-05-22] MEDS ORDERED: LOPRESSOR25 PO (18:15)
--- NOTE | 2018-05-22 19:45 | NUR ---
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 PT CONT TO C/O CHRONIC "CHEST PAIN FROM FIBROMYALGIA". PRN PAIN MEDS ON BOARD. AM MEDS HELD D/T PT HAVING DIALYSIS, PT DEMANDED TO RETURN TO FLOOR AFTER SHORT TIME AT DIALYSIS, DR FREEMAN NOTIFIED, PT HAD 100ML PULLED. PT ALSO REFUSED MEDS ONCE RETURNED FROM DIALYSIS, AGREED TO TAKE DILTIAZEM WITH PAIN PILL. HOURLY ROUNDING COMPLETED, PT ON BEDREST. PT TO RETURN TO [facility] THIS DAY.
--- NOTE | 2018-05-22 22:34 | NUR ---
PT DISCHARGED AT 2100. ESCORTED DOWN WITH THE NURSING STAFF WITH ALL THE BELONGINGS.
--- NOTE | 2018-05-23 08:56 | NUR ---
P.T. ORDERS RECEIVED 05/21/18. PT DISCHARGE 05/22/18 PRIOR TO COMPLETION OF P.T. EVAL.
== END 2018-05-22 21:00 | DRG 205 ==
LOC: M.ERS 13:58 → M.TBA-ER 15:03 → M.2W 15:03
PROVIDERS: Emergency Medicine Emergency Medical Services; ADMIT Internal Medicine
PROC: 5A1D70Z Performance of Urinary Filtration, Intermittent, Less than 6 Hours Per Day (ICD-10-PCS; principal; 2018-05-22)
DX: M94.0 Chondrocostal junction syndrome [Tietze] (principal); N18.6 End stage renal disease; I13.2 Hypertensive heart and chronic kidney disease with heart failure and with stage 5 chronic kidney disease, or end stage renal disease; I50.32 Chronic diastolic (congestive) heart failure; M79.7 Fibromyalgia; G62.9 Polyneuropathy, unspecified; I48.0 Paroxysmal atrial fibrillation; G89.29 Other chronic pain; Z96.659 Presence of unspecified artificial knee joint; G31.84 Mild cognitive impairment of uncertain or unknown etiology; Z79.891 Long term (current) use of opiate analgesic; Z99.2 Dependence on renal dialysis; Z88.6 Allergy status to analgesic agent; Z88.8 Allergy status to other drugs, medicaments and biological substances; Z88.0 Allergy status to penicillin; Z88.7 Allergy status to serum and vaccine; Z91.048 Other nonmedicinal substance allergy status; Z79.899 Other long term (current) drug therapy; Z90.49 Acquired absence of other specified parts of digestive tract; Z90.710 Acquired absence of both cervix and uterus; Z88.5 Allergy status to narcotic agent